=== PATIENT | female | born 1970 | race Caucasian/White ===

== ENCOUNTER 2017-12-17 09:14 | Day surgery (SDC) | payer OTHER ==
[~2017-12-17 09:14] MED LIST: Dextrose 5%/0.45% NS 1,000 ML IV SCH; Morphine 10 mg/5 ml Oral Soln PO PRN
[2017-12-17] MEDS ORDERED: ceFAZolin IV 1 gm in Dextrose 1 GM/50 ML BAG IVPB ONE (12:04)
[2017-12-17] MEDS ORDERED: HYDROmorphone 0.5 mg/0.5 ml ISec IVP PRN (12:59)
[2017-12-17] MEDS ORDERED: Lactated Ringer's 1,000 ML IV SCH (13:00)
[2017-12-17] MEDS ORDERED: Succinylcholine Chloride 20 mg/ml Syr (5 ml) IV ONE (13:00)
[2017-12-17 15:57] VITALS: BP 110/80; PULSE 72; RESP 18; TEMP 98; O2SAT 100
--- NOTE | 2017-12-18 00:11 | OP ---
PROCEDURE DATE: 12/17/2017 PREOPERATIVE DIAGNOSIS: Chronic tonsillitis. POSTOPERATIVE DIAGNOSIS: Chronic tonsillitis. PROCEDURE: Tonsillectomy. SURGEON: Mikey Montano MD SIGNIFICANT FINDINGS: 2+ tonsils. DESCRIPTION OF PROCEDURE: The patient was brought into the room, placed in the supine position, anesthesia was initiated through an ET tube. The patient was draped in the usual manner. Mouth gag was placed in the oral cavity, opened and suspended on the Brooks seat scooper machine the usual manner. Right tonsil was grabbed and pulled medially. Incision was made in the anterior tonsillar pillar using a plasma knife. Dissections were done between tonsil and tonsillar fossa using plasma knife until the tonsil was removed. Bleeding was controlled using plasma knife. Next, the other tonsil was grabbed and pulled medially, incision was made in the anterior tonsillar pillar using plasma knife. Dissection was done between tonsil and tonsillar fossa using plasma knife until the tonsil was removed. Bleeding was controlled using plasma knife. Both tonsillar beds were rubbed vigorously with a plasma knife wand. No bleeding was noted. Mouth gag was let down for 30 seconds and put back up, no bleeding was noted. Mouth gag was then taken out and removed. The patient was taken off anesthesia and taken to the recovery room in stable manner. Mikey Montano MD
== END 2017-12-17 16:00 | disposition home or self-care (01) ==
LOC: C.SDS 09:14
PROVIDERS: ATTEND Otolaryngology
DX: J35.01 Chronic tonsillitis (principal)
CPT/HCPCS: 42826; 88304; J0690; J1100; J1170